=== PATIENT | male | born 1940 | race Caucasian/White ===

== ENCOUNTER 2021-05-28 14:29 | Emergency (ER) | payer MEDICARE ==
[~2021-05-28] VITALS: Ht 193 cm; Wt 115.0 kg
[2021-05-28 14:41] VITALS: TEMP 97.4
[2021-05-28 15:17] LABS: BASO % 0.3 % (0.0-2.0); EOS # 0.1 K/mm3 (0.0-0.7); EOS % 0.6 % (0.0-4.0); GRAN # 9.1 K/mm3 (1.4-6.5); GRAN % 73.9 % (42.2-75.2); HEMOGLOBIN 12.1 g/dl (13.5-18.0); LYMPH # 1.8 K/mm3 (1.2-3.4); LYMPH % 14.3 % (20.0-51.0); MEAN CELL VOLUME 91 fl (80.0-100.0); MEAN CORPUSCULAR HEMOGLOBIN 31 pg (27-31); MEAN CORPUSCULAR HGB CONC 34 g/dl (33.0-37.0); MEAN PLATELET VOLUME 11.4 fl (7.4-10.4); MONO # 1.3 K/mm3 (0.1-0.6); MONO % 10.7 % (1.7-9.3); PLATELET COUNT 198 K/mm3 (130-400); REDCELL DISTRIBUTION WIDTH-CV 12.6 % (11.5-14.5)
[2021-05-28 15:18] LABS: HEMATOCRIT 35.4 % (42.0-52.0)
[2021-05-28 15:43] LABS: ALBUMIN 3.3 gm/dL (3.4-4.8); CALCIUM 7.8 mg/dL (8.4-10.2); CREATININE, serum 1.27 mg/dL (0.72-1.25); POTASSIUM 3.9 mmol/L (3.5-4.5); TOTAL PROTEIN 5.6 gm/dL (6.2-8.1)
[2021-05-28 15:49] LABS: TROPONIN-I 0.013 ng/mL (0.00-0.033)
[2021-05-28 17:59] VITALS: BP 119/53; PULSE 73
== END 2021-05-28 18:01 | disposition home or self-care (01) ==
LOC: COL.ER 14:29
PROVIDERS: Emergency Medicine
DX: R55 Syncope and collapse (principal); I10 Essential (primary) hypertension; Z96.653 Presence of artificial knee joint, bilateral
CPT/HCPCS: J7030; Q9967